=== PATIENT | female | born 1950 | race Caucasian/White ===

== ENCOUNTER 2024-03-19 12:00 | Outpatient (AMB) | payer MEDICARE, SELFPAY ==
[2024-03-19 12:02] VITALS: BP 150/90; PULSE 82; TEMP 36.7; O2SAT 96; BMI 28.2
--- NOTE | 2024-03-19 12:02 | AM.OFFWIN_ITS ---
Intake Vital Signs 03/19/24 12:02 Height 5 ft 2 in Weight 154 lb BMI 28.2 BP 150/90 H Blood Pressure Location Lt brachial Position Sitting Pulse 82 Pulse Source Pulse Oximeter Temp 98.1 F Temp Source Temporal Artery Scan Pulse Oximetry (%) 96 Oxygen Delivery Method Room Air Intake Visit Reasons: EST/face swelling (lobby) Patient Tobacco Use Status: Current everyday Tobacco user Allergies sulfabenzamide Allergy (Mild, Verified 03/19/24 12:08) Hives Do you need a note to return to daycare/school/sports/work: No HPI HPI Comments History of Present Illness Details 73-year-old female presents today compla ining of puffiness of her face. She denies any potential allergens. She is not short of breath [facility] Social History Patient Tobacco Use Status: Current everyday Tobacco user Review of Systems Const All systems reviewed & are unremarkable except as noted in HPI and below Physical Exam Vital Signs: Last Vital Signs Temp 98.1 F 03/19/24 12:02 Pulse 82 03/19/24 12:02 BP 150/90 H 03/19/24 12:02 Pulse Ox 96 03/19/24 12:02 Oxygen Delivery Method Room Air 03/19/24 12:02 BMI result Body Mass Index 28.2 Const General: healthy appearing and no acute distress HEENT Head: Yes normal to inspection, Yes normocephalic and Yes atraumatic Ears: hearing grossly normal bilaterally Face and sinus: Yes normal facial exam and Yes sinuses nontender Mouth: Normal oral and palatal mucosa present Resp Effort & Inspection: normal respiratory effort Auscultation: clear to auscultation bilaterally Cardio Rate: regular rate Rhythm: regular rhythm Assessment & Plan Assessment & Plan (1) Contact dermatitis: Code(s): L25.9 - Unspecified contact dermatitis, unspecified cause Plan: Of the patient will placed on prednisone for her contact dermatitis. Follow-up with PCP Plan See plan Medications: New prednisone prednisone 5 mg: take 8 tablets (40 mg) on Day 1; 7 tablets (35 mg) on Day 2; then decrease by 1 tablet every day until finished PO 48 ea 0RF Coding Level of Care Code Est Pt Level 3 (39597) Diagnoses Contact dermatitis L25.9
== END 2024-03-19 13:32 | disposition home or self-care (01) ==
PROVIDERS: Visit Provider Physician Assistant Medical
DX: L25.9 Unspecified contact dermatitis, unspecified cause (principal)
CPT/HCPCS: 99213